=== PATIENT | female | born 1965 | race Caucasian/White ===

== ENCOUNTER 2021-11-02 13:35 | Outpatient (CLI) | payer BC | END 2021-11-02 13:36 | disposition short-term general hospital (02) | LOC: EMS 13:35 | DX: R41.0 Disorientation, unspecified (principal); R53.83 Other fatigue; R50.9 Fever, unspecified; R17 Unspecified jaundice; R60.0 Localized edema | CPT/HCPCS: A0425; A0427 ==

== ENCOUNTER 2022-06-11 20:03 | Outpatient (CLI) | payer BC | END 2022-06-11 20:04 | disposition critical access hospital (66) | LOC: EMS 20:03 | DX: R51.9 Headache, unspecified (principal); R17 Unspecified jaundice | CPT/HCPCS: A0425; A0427 ==

== ENCOUNTER 2022-06-11 20:33 | Emergency (ER) | payer BC ==
[2022-06-11] MEDS ORDERED: KETOROLAC 30 MG/ML VIAL IVP STA (20:48)
[2022-06-11] MEDS ORDERED: SODIUM CHLORIDE 0.9% 1,000 ML IV STA (20:48)
[2022-06-11] MEDS ORDERED: PROMETHAZINE INJ 12.5 MG in SODIUM CHLORIDE 0.9% 50 ML IV STA (20:49)
--- NOTE | 2022-06-11 20:54 | ED Physician Documentation ---
History of Present Illness - Stated complaint Stated Complaint: HEADACHE - Chief complaint Chief Complaint: Neuro - History obtained from History obtained from: Patient, EMS - Additonal information Additional information: The patient is brought to the emergency department by EMS for chief complaint of headache. The headache started today. The patient cannot really describe it well, as at baseline, she has some sort of communication delay, the etiology of which is unclear. However, she states its "way up there". When I asked her the nature of the headache, for example dull, sharp, etc., the patient again states "it is high". The medics report that they spoke with the patient's boyfriend, who lives with her, and that he says this communication level is normal for her. The patient has not had any recent head injuries. She has not been ill with anything recently. She has no migraine history. The patient does have a history of alcohol abuse and alcoholic liver cirrhosis, and was hospitalized at [facility] in October. While there, she had a seizure and a full work-up ensued including consultation with neurology. The patient was started on Keppra at that time but did not follow-up with neurology according to the report boyfriend gave to medics. The patient was apparently then taken to [facility] for altered mental status, which was thought to be due to her alc ohol intake and underlying liver condition. At that time, she had another seizure and once again, was worked up including with MRI. She was just discharged a few days ago. The patient is not able to verify much of this information, due to her difficulty communicating. The medics report that the patient has not been noted to have any focal deficits that are new since the headache started. The patient also states she does not feel weak anywhere and has not noticed any other neurologic symptoms. The patient denies any nausea. She was given 4 mg of morphine IV in route, as well as a dose of Zofran and she states it did not help the headache. No other complaints at this time. PD PAST MEDICAL HISTORY - Allergies Allergies/Adverse Reactions: Allergies Allergy/AdvReac Type Severity Reaction Status Date / Time No Known Drug Allergies Allergy Verified 06/11/22 20:47 PD ED PE NORMAL - Vitals Vital signs reviewed: Yes - General General: No acute distress, Well developed/nourished - HEENT HEENT: Atraumatic, PERRL, EOMI, Moist mucous membranes - Neck Neck: Supple, no meningeal sign - Cardiac Cardiac: RRR, No murmur, Strong equal pulses - Respiratory Respiratory: No respiratory distress, Clear bilaterally - Abdomen Abdomen: Soft, Non tender, Non distended - Derm Derm: Normal color, Warm and dry, No rash - Extremities Extremities: No deformity, No edema - Neuro Neuro: Other (The patient speech is clear, but halting and simplistic. She has what seems to be an expressive aphasia. Moving all 4 extremities without difficulty and otherwise no gross deficits.) - Psych Psych: Normal mood, Normal affect Results - Vitals Vitals: Vital Signs - 24 hr 06/11/22 20:30 Temperature 36.8 C Heart Rate 76 Respiratory 16 Rate Blood Pressure 126/73 O2 Saturation 99 Oxygen O2 Source Room air - Labs Labs: Laboratory Tests 06/11/22 06/11/22 06/11/22 20:58 20:58 20:58 WBC 5.6 RBC 3.27 L Hgb 11.3 L Hct 33.5 L MCV 102.4 H MCH 34.6 H MCHC 33.7 RDW 12.8 Plt Count 74 L MPV 10.8 Neut # (Auto) 2.8 Lymph # (Auto) 1.7 [place] # (Auto) 1.0 Eos # (Auto) 0.2 Baso # (Auto) 0.1 Absolute Nucleated RBC 0.00 Nucleated RBC % 0.0 Sodium 131 L Potassium 3.5 Chloride 98 L Carbon Dioxide 20 L Anion Gap 13.0 BUN 15 Creatinine 0.7 Estimated GFR (MDRD) 87 L Glucose 130 H Calcium 8.9 Total Bilirubin 4.6 H AST 49 H ALT 29 Alkaline Phosphatase 103 Ammonia 35.6 H Total Protein 6.8 Albumin 3.5 Globulin 3.3 Albumin/Globulin Ratio 1.1 Lipase 46 Ethyl Alcohol < 5.0 PD Medical Decision Making - ED course Complexity details: reviewed old records, reviewed results, re-evaluated patient, considered differential, d/w patient ED course: The patient's main complaint was headache, which seem to be fairly global. She really cannot describe what she was feeling otherwise, but did not have any meningeal signs and was afebrile. She had a fairly significant expressive aphasia, the etiology of which was unclear, but this was stated to be at baseline and had long been existing. Because she was not a very clear historian, I did order records from [facility]. I ordered symptomatic treatment with IV fluids, Toradol, and Phenergan, and ordered labs including a CBC, ER abdominal panel, ammonia level, and EtOH level. Review of records from [facility] revealed that the patient had presented to their emergency department on June 08 which was 3 days ago. At that time, she had been at the liver clinic when she suddenly developed right arm and leg weakness and worsened aphasia. She was transferred over to the emergency department, where she was worked up with noncontrast head CT and CTAs of the head and neck. The patient's mother was there for the visit and reported according to records that the patient has a history of HSV encephalitis and also seizures. At that time, it was reported that the patient's last drink of alcohol about [address] The head [address] showed encephalomalacia within the left anterior temporal lobe likely related to the history of HSV encephalitis. No acute findings were noted. The patient was also noted not to have any high- grade stenoses or occlusions. Additionally no aneurysms, vascular malfor mations, or dissection. Records reported that the patient had improved after receiving IV Keppra but was still somewhat aphasic on reevaluation. The patient has not reported any new neurologic deficits today, nor has her boyfriend according to medics report. The findings in the left anterior temporal lobe most likely explain the patient's chronic aphasia. I did review the laboratory studies that were ordered above, including CBC, showed slight anemia but otherwise unremarkable; the ER abdominal panel, which showed a bilirubin 4.6 and ammonia level slightly elevated at 35.6. Other, mild, insignificant abnormalities were also noted. The patient's alcohol level was found to be less than 5. I did opt not to do a head CT, as the patient has just had imaging within the last few days and does not have any new neurologic deficits. The patient was found to be feeling a little better on reevaluation, but still did have somewhat of a headache. She was given a subcu dose of Imitrex and a p.o. dose of Vicodin, as her mother was present and did state that the patient's rn lpn lvn had okayed her to take a Tylenol occasionally if she had a headache. The patient was stable for discharge home. Her mother confirmed that she is at her mental baseline and I did not find evidence of an emergent condition at this time. We have discussed home management of symptoms as well as the usual indications for return. Departure - Departure Disposition: 01 Home, Self Care Clinical Impression: Headache Qualifiers: Headache type: unspecified Headache chronicity pattern: acute headache Intractability: not intractable Qualified Code(s): R51.9 - Headache, unspecified Condition: Stable Instructions: ED Cephalgia Unspecified Comments: Your records have been reviewed from your recent visit to [facility]. We have compared the blood work that we did today with what you had done on your visit to , and no significant changes or worsening have been noted. Additionally, you had a number of CT scans done, including with angiography which looks all of your blood vessels. No evidence of an aneurysm, impending bl ockage, or tumor was found. As such, the likelihood of a very serious cause of your headache, all things considered, is very low. Please be sure to get plenty of fluids to drink, in addition to the IV fluid we have given you here in the emergency department. If you have any further headache, you may take Aleve/naproxen 250 mg every 6 hours as needed, or ibuprofen 600 mg every 6 hours as needed. If your liver specialist says it is okay for you to continue to have an occasional dose of Tylenol, as you have reported, then you may go ahead and do so. Please follow-up with your primary doctor for further concerns.
[2022-06-11] MEDS ORDERED: PROMETHAZINE 25 MG/1 ML VIAL ONE (20:56)
[2022-06-11 21:03] LABS: BASOPHILS # (AUTO) 0.1 10^3/uL (0.0-0.1); BASOPHILS % (AUTO) 0.9 %; EOSINOPHILS # (AUTO) 0.2 10^3/uL (0.0-0.7); EOSINOPHILS % (AUTO) 2.8 %; HCT - HEMATOCRIT 33.5 % (37.0-47.0); HGB - HEMOGLOBIN 11.3 g/dL (12.0-16.0); LYMPHOCYTES # (AUTO) 1.7 10^3/uL (1.5-3.5); LYMPHOCYTES % (AUTO) 29.5 %; MEAN CORPUSCULAR HEMOGLOBIN 34.6 pg (27.0-31.0); MEAN CORPUSCULAR HGB CONC 33.7 g/dL (32.0-36.0); MEAN CORPUSCULAR VOLUME 102.4 fL (81.0-99.0); MEAN PLATELET VOLUME 10.8 fL (7.9-10.8); MONOCYTES % (AUTO) 16.9 %; NEUTROPHILS # (AUTO) 2.8 10^3/uL (1.5-6.6); NEUTROPHILS % (AUTO) 49.7 %; PLT - PLATELET COUNT 74 10^3/uL (130-450); RED BLOOD COUNT 3.27 10^6/uL (4.20-5.40); RED CELL DISTRIBUTION WIDTH 12.8 % (12.0-15.0); WHITE BLOOD COUNT 5.6 x10^3/uL (4.8-10.8)
[2022-06-11 21:17] LABS: ALBUMIN 3.5 g/dL (3.2-5.5); ALBUMIN/GLOBULIN RATIO 1.1 (1.0-2.2); ALKALINE PHOSPHATASE 103 IU/L (42-121); ALT ALANINE AMINOTRANSFERASE 29 IU/L (10-60); AST ASPARTATE AMINOTRANSFERASE 49 IU/L (10-42); BILIRUBIN,TOTAL 4.6 mg/dL (0.2-1.0); BUN - BLOOD UREA NITROGEN 15 mg/dL (6-20); CALCIUM 8.9 mg/dL (8.5-10.3); CARBON DIOXIDE - CO2 20 mmol/L (21-32); CHLORIDE 98 mmol/L (101-111); CREATININE 0.7 mg/dL (0.4-1.0); ETOH - ETHANOL < 5.0 mg/dL; GFR - MDRD 87 (>89); GLUCOSE 130 mg/dL (70-100); LIPASE 46 U/L (22-51); POTASSIUM 3.5 mmol/L (3.5-5.0); SODIUM 131 mmol/L (135-145); TOTAL PROTEIN 6.8 g/dL (6.7-8.2)
[2022-06-11] MEDS ORDERED: SUMAtriptan 6 MG/0.5 ML VIAL SUBQ STA (21:33)
[2022-06-11] MEDS ORDERED: HYDROcod/ACETAM 5/325 MG TABLET PO STA (21:41)
[2022-06-11 22:11] VITALS: BP 125/64
== END 2022-06-11 22:11 | disposition home or self-care (01) ==
LOC: EDBD → EDUNIT# → ED 20:33
DX: R51.9 Headache, unspecified (principal)
CPT/HCPCS: 36415; 80053; 80320; 82140; 83690; 85025; 96365; 96372; 96375; 99284; A9270; J7040